=== PATIENT | male | born 1940 | race African-American/Black ===

== ENCOUNTER 2017-08-29 19:54 | Emergency (ER) | payer OTHER ==
[~2017-08-29] VITALS: Ht 182.9 cm; Wt 81.9 kg
[2017-08-29 20:25] LABS: BASOPHILS % 0.9 % (0.0-2.0); EOSINOPHILS % 3.6 % (0.0-5.0); HEMATOCRIT. 39.6 % (42.0-52.0); HEMOGLOBIN. 13.3 g/dL (14.0-18.0); LYMPHOCYTES % 16.5 % (20.0-50.0); MEAN CORPUSCULAR HEMOGLOBIN 28.1 pg (28.0-32.0); MEAN CORPUSCULAR VOLUME 83.7 fL (80.0-94.0); MEAN PLATELET VOLUME 8.1 fl (7.4-10.4); MONOCYTES % 7.7 % (2.0-8.0); NEUTROPHILS % 71.3 % (40.0-76.0); PLATELET 259 x1000/uL (130-400); RED BLOOD CELL COUNT 4.74 mill/uL (4.7-6.1); RED CELL DISTRIBUTION WIDTH 15.1 % (11.6-14.6)
[2017-08-29 20:30] LABS: CHLORIDE 109 mEq/L (98-107); INR 1.2; PROTHROMBIN TIME 12.2 sec (9.4-11.6)
[2017-08-29] MEDS ORDERED: HYDRALAZINE 20MG/ML VIAL IV ONE (20:30)
[2017-08-29 20:33] LABS: ETHANOL BLOOD < 10 mg/dL
[2017-08-29 20:37] LABS: LDL CHOLESTEROL 100 mg/dL (5-100)
[2017-08-29] MEDS ORDERED: ASPIRIN 81MG TABLET PO ONE (21:30)
[2017-08-29] MEDS ORDERED: FUROSEMIDE 40MG/4ML VIAL IVP ONE (23:15)
[2017-08-29 23:33] VITALS: BP 188/101
== END 2017-08-29 23:40 | disposition short-term general hospital (02) ==
LOC: ER 20:37
DX: I63.9 Cerebral infarction, unspecified (principal); I50.9 Heart failure, unspecified; I12.9 Hypertensive chronic kidney disease with stage 1 through stage 4 chronic kidney disease, or unspecified chronic kidney disease; Z79.01 Long term (current) use of anticoagulants; Z79.82 Long term (current) use of aspirin; Z98.890 Other specified postprocedural states
CPT/HCPCS: 36415; 70450; 71045; 80053; 83721; 84484; 85025; 85610; 93005; 96374; 96375; 99291; G0482; J0360; J1940